=== PATIENT | female | born 2000 | race African-American/Black ===

== ENCOUNTER 2019-07-12 00:05 | Inpatient (IN) ==
[2019-07-12] MEDS ORDERED: ONDANSETRON 4 MG/2 ML VIAL IV PRN (00:27)
[2019-07-12] MEDS ORDERED: BUTORPHANOL 2 MG/ML VIAL IV PRN (00:27)
[2019-07-12] MEDS ORDERED: MEPERIDINE 50 MG/1 ML VIAL IV PRN (00:27)
[2019-07-12] MEDS ORDERED: ACETAMINOPHEN 325 MG TABLET PO PRN (00:27)
[2019-07-12] MEDS ORDERED: LACTATED RINGERS 1,000 ML IV SCH (00:30)
[2019-07-12 00:52] LABS: Basophils # 0.1 10*3/uL (0.0-0.2); Basophils % 0.4 % (0.0-0.8); Eosinophils # 0.1 10*3/uL (0.0-0.87); Eosinophils % 0.9 % (0.00-10.9); Hematocrit 34.2 VOL% (35.7-47.0); Hemoglobin 11.1 GM/DL (12.0-16.0); Immature Granulocytes % 1.6 %; Lymphocytes % 16.6 % (21.3-54.2); Mean Corpuscular HGB Conc 32.5 GM/DL (32-36); Mean Corpuscular Volume 73.1 FL (87-102); Mean Platelet Volume 12.4 FL (9.6-12.0); Monocytes % 8.4 % (1.7-12.7); Neutrophils % 72.1 % (38.7-73.9); Platelet Count 392 T/CUMM (130-400); Red Blood Count 4.68 MC/CUMM (3.8-5.5); Red Cell Distribution Width 15.6 % (9.3-17.3); White Blood Count 12.2 T/CUMM (4-12)
[2019-07-12 01:11] LABS: Alanine Aminotransferase 14 U/L (13-56); Albumin 2.8 G/DL (3.4-5.0); Alkaline Phosphatase 433 U/L (45-117); Aspartate Amino Transferase 17 U/L (0-37); Bilirubin,Total < 0.39 MG/DL (0.2-1.0); Blood Urea Nitrogen 7 MG/DL (7-18); Glucose 96 MG/DL (74-106); Osmolality,Calculated 274.5 MOS/KG (273-304); Total Protein 7.3 G/DL (6.4-8.3)
[2019-07-12 01:44] LABS: Apearance,Urine Slightly Hazy (Clear); Bilirubin,Urine Negative (Negative); Blood, Urine Small mg/dL (Negative); Glucose,Urine (UA) Negative (Negative); Ketones,Urine Negative (Negative); Mucus,Urine Occasional /LPF (Occasional); Nitrite,Urine Negative (Negative); Protein,Urine Negative; RBC,Urine 5 /HPF (0-4); Squamous Epithelial Cell,Urine Occasional /HPF (0-10); Urine Color Yellow (Yellow); Urine Specific Gravity 1.012 (1.001-1.035); Urine Urobilinogen < 2.0 EU/DL (0.2-1.0); WBC,Urine 10 /HPF (0-6)
[2019-07-12] MEDS ORDERED: AMPICILLIN INJ 2,000 MG in SODIUM CHLORIDE 0.9% 100 ML IV ONE (05:58)
[2019-07-12] MEDS ORDERED: AMPICILLIN 2,000 MG VIAL ONE (05:59)
[2019-07-12] MEDS ORDERED: LIDOCAINE 1% 50 ML VIAL ONE (07:50)
[2019-07-12] MEDS ORDERED: OXYTOCIN/LR 20 UNIT/1,000 ML BAG IV ONE ×2 (07:51→11:40)
[2019-07-12] MEDS ORDERED: miSOPROStol 200 MCG TABLET ONE (07:51)
[2019-07-12] MEDS ORDERED: TRANEXAMIC ACID 1,000 MG/10 ML VIAL ONE (07:51)
[2019-07-12] MEDS ORDERED: METHYLERGONOVINE 0.2 MG/1 ML AMP ONE (07:52)
[2019-07-12] MEDS ORDERED: CARBOPROST TROMETHAMINE 250 MCG/ML AMP IM ONE (07:52)
[2019-07-12 09:21] LABS: Cord Arterial Blood HCO3 17.8 MMOL/L; Cord Venous Blood HCO3 20.1 MMOL/L; Cord Venous Blood PCO2 41.3 MMHG; Cord Venous Blood PO2 38.8 MMHG
[2019-07-12] MEDS ORDERED: AMPICILLIN INJ 1,000 MG in SODIUM CHLORIDE 0.9% 100 ML IV SCH (10:00)
[2019-07-12] MEDS ORDERED: oxyCODONE/ACETAMINOPHEN 5-325 MG TABLET PO PRN ×2 (11:56)
[2019-07-12] MEDS ORDERED: WITCH HAZEL PADS 100/JAR TOP PRN (11:56)
[2019-07-12] MEDS ORDERED: LANOLIN 50% CREAM 0.3 OZ TUBE TOP PRN (11:56)
[2019-07-12] MEDS ORDERED: RHO(D) IMMUNE GLOBULIN 300 MCG SYRINGE IM ONE (11:56)
[2019-07-12] MEDS ORDERED: DIPH/TET/ACEL PERT BOOSTER VACCINE 0.5 ML VIAL IM ONE (11:56)
[2019-07-12] MEDS ORDERED: HYDROCORTISONE 2.5% RECTAL CREAM 30 GM TUBE TOP PRN (11:56)
[2019-07-12] MEDS ORDERED: BISACODYL 10 MG SUPP RECTAL PRN (11:56)
[2019-07-12] MEDS ORDERED: MEASLES/MUMPS/RUBELLA VACCINE 0.5 ML VIAL SUBCUT ONE (11:56)
[2019-07-12] MEDS ORDERED: IBUPROFEN 800 MG TABLET PO PRN (11:56)
[2019-07-12] MEDS ORDERED: BENZOCAINE 20%/MENTHOL 0.5% SPRAY 56 GM CAN TOP PRN (11:56)
[2019-07-12] MEDS: DOCUSATE SODIUM 100 MG CAPSULE PO SCH (21:58)
[2019-07-13 06:42] LABS: Basophils % 0.3 % (0.0-0.8); Eosinophils # 0.1 10*3/uL (0.0-0.87); Eosinophils % 0.7 % (0.00-10.9); Hematocrit 31.2 VOL% (35.7-47.0); Immature Granulocytes % 0.9 %; Immature Granulocytes Absolute 0.14 #; Lymphocytes # 1.9 10*3/uL (1.4-4.0); Lymphocytes % 12.5 % (21.3-54.2); Mean Corpuscular HGB Conc 32.1 GM/DL (32-36); Mean Corpuscular Volume 73.8 FL (87-102); Mean Platelet Volume 12.6 FL (9.6-12.0); Monocytes % 7.2 % (1.7-12.7); Neutrophils % 78.4 % (38.7-73.9); Platelet Count 326 T/CUMM (130-400); Red Blood Count 4.23 MC/CUMM (3.8-5.5); Red Cell Distribution Width 15.2 % (9.3-17.3); White Blood Count 15.4 T/CUMM (4-12)
[2019-07-13] MEDS: DOCUSATE SODIUM 100 MG CAPSULE PO SCH ×2 (10:14→21:13)
[2019-07-14 09:12] VITALS: BP 107/55
[2019-07-14] MEDS: DOCUSATE SODIUM 100 MG CAPSULE PO SCH (10:06)
== END 2019-07-14 12:25 | disposition home or self-care (01) | DRG 560 ==
LOC: N.LDOUT 00:05 → N.LD 00:10 → N.OB 11:51
PROVIDERS: ADMIT Obstetrics & Gynecology; ATTEND Obstetrics & Gynecology